=== PATIENT | female | born 1955 | race Caucasian/White ===

== ENCOUNTER 2017-04-22 20:13 | Emergency (ER) | payer OTHER ==
[2017-04-22 20:14] VITALS: BP 198/93; PULSE 67; RESP 16; TEMP 98.4; O2SAT 98
--- NOTE | 2017-04-22 20:23 | PD ---
Physical Exam Date Seen by Provider: Apr 22, 2017 Time Seen by Provider: 20:20 Data Data Last Documented VS Vital Signs Date Time Temp Pulse Resp B/P Pulse Ox O2 Delivery O2 Flow Rate FiO2 04/22/17 20:14 98.4 67 16 198/93 98 Room Air [facility] Supervised Visit with JOAQUIM: No Narrative Course 62 YO F with PMH A fib, HTN with complaint of facial swelling overnight. Taking lisinopril since 03/22. Denies breathing difficulties. Visiting from [place]. Vitals reviewed. Awaiting bed placement. Lo Fritz Apr 22, 2017 20:22
[2017-04-22] MEDS ORDERED: SOTA120T PO (21:28)
[2017-04-22] MEDS ORDERED: LISI-519 PO (21:30)
[2017-04-22] MEDS ORDERED: PLAV75TA29 PO (21:33)
[2017-04-22] MEDS ORDERED: AMLO5TAB2 PO (21:40)
[2017-04-22] MEDS ORDERED: PRED20 PO (21:42)
[2017-04-22] MEDS ORDERED: predniSONE 20 MG TAB PO ONE (21:45)
[2017-04-22] MEDS ORDERED: diphenhydrAMINE HCL 50 MG CAP PO ONE (21:45)
--- NOTE | 2017-04-22 21:52 | PD ---
HPI Chief Complaint: Allergic/Adverse Reaction Time Seen by Provider: 21:47 Travel History International Travel<30 days: No Contact w/Intl Traveler<30days: No Traveled to known affect area: No History of Present Illness HPI 62-year-old female that presents to the ED for evaluation of swelling to the lips. Per patient she's had this since yesterday night. Per patient she is here visiting and she doesn't know if this is related to the circumflex take that she is started on a medication. Per patient she just started lisinopril for blood pressure which her doctor started her about a month ago. She has had no issues until today. She states compliance with her medications. She has any chest pain. No shortness of breath. No throat pain. Per patient she does have some pain on the lip from the swelling but otherwise no other symptom. No weakness. She's never had anything like this before. No insect bites. No shortness of breath. No chest pain. No numbness, tilling, weakness. Allergies to Augmentin, codeine, Vicodin. She has not called her doctor about this. She did took a Benadryl today to see if it is will help but has not helped. PFSH Past Medical History Atrial Fibrillation: Yes Diminished Hearing: No Hypertension: Yes ?: Not Menopausal: Yes Past Surgical History Other Surgery: Yes (STENTS IN BILAT LEG) Social History Alcohol Use: No Tobacco Use: No Substance Use: No Allergies-Medications (Allergen,Severity, Reaction): Coded Allergies: Lisinopril (Verified Allergy, Severe, 04/22/17) angioedema Augmentin (Verified Allergy, Unknown, 04/22/17) Codeine (Verified Allergy, Unknown, 04/22/17) Vicodin (Verified Allergy, Unknown, 04/22/17) Reported Meds & Prescriptions Reported Meds & Active Scripts Active Prednisone 20 Mg Tab 20 Mg PO BID Amlodipine (Amlodipine Besylate) 5 Mg Tab 5 Mg PO DAILY Reported Plavix (Clopidogrel Bisulfate) 75 Mg Tab 75 Mg PO DAILY Lisinopril 5 Mg Tab 5 Mg PO DAILY Sotalol (Sotalol HCl) 120 Mg Tab 120 Mg PO BID Review of Systems Except as stated in HPI: all other systems reviewed are Neg Physical Exam Narrative GENERAL: SKIN: Warm and dry. HEAD: Atraumatic. Normocephalic. EYES: Pupils equal and round. No scleral icterus. No injection or drainage. ENT: No nasal bleeding or discharge. Mucous membranes pink and moist. Tongue is midline. No uvula deviation. No edema noted on the throat. Patient does have what appears to be soft tissue swelling of the upper lip. Minimal but noticeable. NECK: Trachea midline. No JVD. CARDIOVASCULAR: Regular rate and rhythm. RESPIRATORY: No accessory muscle use. Clear to auscultation. Breath sounds equal bilaterally. GASTROINTESTINAL: Abdomen soft, non-tender, nondistended. Hepatic and splenic margins not palpable. MUSCULOSKELETAL: Extremities without clubbing, cyanosis, or edema. No obvious deformities. NEUROLOGICAL: Awake and alert. No obvious cranial nerve deficits. Motor grossly within normal limits. Five out of 5 muscle strength in the arms and legs. Normal speech. PSYCHIATRIC: Appropriate mood and affect; insight and judgment normal. Data Data Last Documented VS Vital Signs Date Time Temp Pulse Resp B/P Pulse Ox O2 Delivery O2 Flow Rate FiO2 04/22/17 20:24 18 04/22/17 20:14 98.4 67 198/93 98 Room Air Orders Prednisone (Deltasone) (04/22/17 21:45) Diphenhydramine (Benadryl) (04/22/17 21:45) MDM Medical Decision Making Medical Screen Exam Complete: Yes Emergency Medical Condition: Yes Medical Record Reviewed: Yes Differential Diagnosis Angioedema versus allergic reaction versus reaction to medication Narrative Course 62-year-old female that presents to the ED for evaluation of swelling to the lip. Patient was properly examined and was found to have signs and symptoms very consistent what appears to be angioedema. Case was discussed in my attending who is in agreement with plan. Patient was given Benadryl and prednisone here. She will be given prescriptions for this. She was told to not take the lisinopril anymore. I will switch her medications to amlodipine for blood pressure she is given a staying [place] for at least 10 more days and does require some blood pressure management. She was instructed that she can no longer take the lisinopril and she understands reasons to come back. She doesn't have any signs of throat swelling or edema. Symptoms started since yesterday. My attending evaluated the patient with me and he agrees the patient can be safely discharged home. Patient will be started on prednisone and told to take Benadryl PCP. See ED for worsening symptoms. Follow with PCP. Lisinopril was added to her list of allergies. Diagnosis Primary Impression: Angioedema of lips Qualified Code: T78.3XXA - Angioedema of lips, initial encounter Patient Instructions: General Instructions Additional Instructions: Do not take lisinopril anymore. Take the prednisone as prescribed to you. Take Benadryl for itch as needed. Start amlodipine. Follow-up with your doctor when he gets home. See ED for any worsening symptoms especially swelling , shortness of breath. Med/Other Pt SpecificInfo: Prescription(s) given, Existing Med Changed ( stop Lisinopril) Scripts Prednisone 20 Mg Tab20 Mg PO BID #10 TAB Prov:Taqueria Dhaliwal MD 04/22/17 Amlodipine 5 Mg Tab5 Mg PO DAILY #30 TAB Ref 0 Prov:Taqueria Dhaliwal MD 04/22/17 Disposition: 01 DISCHARGE HOME Condition: Stable Roe Elaine Apr 22, 2017 21:52
--- NOTE | 2017-04-22 21:54 | PD ---
Data Data Last Documented VS Vital Signs Date Time Temp Pulse Resp B/P Pulse Ox O2 Delivery O2 Flow Rate FiO2 04/22/17 20:24 18 04/22/17 20:14 98.4 67 198/93 98 Room Air Orders Prednisone (Deltasone) (04/22/17 21:45) Diphenhydramine (Benadryl) (04/22/17 21:45) MDM Supervised Visit with JOAQUIM: Yes Narrative Course I, Dr. Dhaliwal, have reviewed the advance practice practitioner's documentation and am in agreement, met with the patient face to face, made the diagnosis, and the medical decision making was done by me. *My assessment and Findings: This is a 62-year-old female has been on lisinopril for a month presents emergency Department with chief concerns and cosmetic swelling to the upper lip. Patient states she noted this last night and has not changed that time. She adamantly denies any choking sensation difficulty breathing or difficulty swallowing. On my physical exam she has very small amount of edema to the upper lip only, no facial swelling the lower lip swelling her oropharynx is completely clear without any swelling at all. No tongue swelling her swallow is intact and she is at high spirits. Discussed the patient that we would be happy to observe her in the emergency department for some time to make sure the swelling does get worse however this is my opinion very conservative given that her symptoms have been stable for the past 24 hours. She seems to be a reliable historian and reliable for return. Discussed with her strict return to ED criteria and criteria for which to call 911. She verbalized understanding and agreement. She stable for discharge. Diagnosis Primary Impression: Angioedema of lips Qualified Code: T78.3XXA - Angioedema of lips, initial encounter Patient Instructions: General Instructions Additional Instruction: Do not take lisinopril anymore. Take the prednisone as prescribed to you. Take Benadryl for itch as needed. Start amlodipine. Follow-up with your doctor when he gets home. See ED for any worsening symptoms especially swelling , shortness of breath. Scripts Prednisone 20 Mg Tab20 Mg PO BID #10 TAB Prov:Taqueria Dhaliwal MD 04/22/17 Amlodipine 5 Mg Tab5 Mg PO DAILY #30 TAB Ref 0 Prov:Taqueria Dhaliwal MD 04/22/17 Disposition: 01 DISCHARGE HOME Condition: Stable Taqueria Dhaliwal MD Apr 22, 2017 21:53
== END 2017-04-22 22:34 | disposition home or self-care (01) ==
LOC: NEPC 20:13
DX: T78.3XXA Angioneurotic edema, initial encounter (principal); I48.91 Unspecified atrial fibrillation; I10 Essential (primary) hypertension
CPT/HCPCS: 99284; J7512; Q0163